=== PATIENT | male | born 1960 | race Caucasian/White ===

== ENCOUNTER 2022-01-25 10:36 | Emergency (ER) | payer MEDICARE, MEDICAID ==
[2022-01-25] MEDS ORDERED: Sodium Chloride 0.9% 10 ML Syringe FLUSH PRN (10:51)
[2022-01-25] MEDS ORDERED: Sodium Chloride 0.9% 1,000 ML IV SCH (11:00)
[2022-01-25 11:32] LABS: ESTIMATED GFR 57 mL/min (>60)
[2022-01-25 14:29] VITALS: BP 107/42; PULSE 55
== END 2022-01-25 13:40 | disposition home or self-care (01) ==
LOC: FB.ED 10:36
DX: E86.0 Dehydration (principal); N17.9 Acute kidney failure, unspecified; R74.8 Abnormal levels of other serum enzymes
CPT/HCPCS: 36415; 71045; 80053; 83880; 84484; 85025; 93005; 96360; 96361; 99284; J7030

== ENCOUNTER 2022-04-09 16:19 | Emergency (ER) | payer MEDICARE, MEDICAID ==
[2022-04-09] MEDS ORDERED: Lidocaine 1% with EPINEPHrine 1:100,000 20 ML MDV INFILT ONE (16:20)
[2022-04-09] MEDS ORDERED: Cephalexin 500 MG Cap PO ONE (16:20)
[2022-04-09] MEDS ORDERED: Diphtheria,Pertussis(Acell),Tetanus Vaccine 0.5 ML Syringe IM ONE (17:05)
[2022-04-09 17:34] VITALS: BP 142/79; PULSE 68
== END 2022-04-09 17:30 | disposition home or self-care (01) ==
LOC: FB.ED 16:19
DX: S81.812A Laceration without foreign body, left lower leg, initial encounter (principal); Z23 Encounter for immunization; Z79.01 Long term (current) use of anticoagulants; Z79.899 Other long term (current) drug therapy; W31.2XXA Contact with powered woodworking and forming machines, initial encounter
CPT/HCPCS: 12002; 90471; 90715; 99282-25; A9270-GY